=== PATIENT | female | born 1975 | race Caucasian/White ===

== ENCOUNTER 2016-03-19 18:04 | Emergency (ER) | payer OTHER ==
[~2016-03-19] VITALS: Ht 149.9 cm; Wt 67.5 kg
[2016-03-19 18:18] VITALS: Ht 149.9 cm; Wt 67.5 kg
[2016-03-19] MEDS ORDERED: ALBU8.5H3 INH (18:51)
[2016-03-19] MEDS ORDERED: GUAI473L22 PO (18:51)
[2016-03-19] MEDS ORDERED: PSEU120T11 PO (18:51)
--- NOTE | 2016-03-19 18:57 | ERD ---
ER Documentation Chief Complaint Date/Time DATE: 03/19/16 TIME: 18:54 Chief Complaint Cough X 1 week and difficulty breathing x 2 days, sats 96%. HPI 40-year-old female presents to emergency department for complaint of cough for 1 week, on and off wheezing, runny nose nasal congestion. Patient has been having cough for one week, has been having shortness of breath and some wheezing episode for the last 2 days. Patient having dry cough, does not cough up any phlegm or blood. Patient does not have any fever or chills. Patient does not have any sick contacts. Patient does not have any chest or palpitations. Patient took promethazine with only mild relief. Patient denies any sick contacts. ROS All systems reviewed and are negative except as per history of present illness. Medications Home Meds Active Scripts Pseudoephedrine Hcl (Sudafe 12-Hour) 120 Mg Tablet.er, 120 MG PO BID Y for CONGESTION, #14 TAB.SA Prov:WEI CANAS NP 03/19/16 Albuterol Sulfate* (Proair HFA*) 8.5 Gm Hfa.aer.ad, 2 PUFF INH Q4H Y for WHEEZING AND SOB, #1 INHALER Prov:WEI CANAS NP 03/19/16 Guaifenesin-Codeine Phosphate* (Guaifenesin* AC Cough Syrup) 473 Ml Liquid, 10 ML PO Q4H Y for COUGH, #120 ML Prov:WEI CANAS EXTERMINATOR 03/19/16 Allergies Allergies: Coded Allergies: loratadine (Verified Allergy, Mild, 05/04/15) PMhx/Soc History of Surgery: Yes (CSX, L SCALP MASS RESECTION) Anesthesia Reaction: No Hx Neurological Disorder: No Hx Respiratory Disorders: No Hx Cardiac Disorders: No Hx Psychiatric Problems: No Hx Miscellaneous Medical Probl: No Hx Alcohol Use: No Hx Substance Use: No Hx Tobacco Use: No FmHx Family History: No coronary disease, No diabetes, No other Physical Exam Vitals Vital Signs Date Time Temp Pulse Resp B/P Pulse Ox O2 Delivery O2 Flow Rate FiO2 03/19/16 18:18 98.3 87 18 135/78 96 Physical Exam GENERAL: The patient is well developed and appropriate for usual state of health, in no apparent distress. HEENT: Atraumatic. Ears: Normal tympanic membrane, no erythema or bulging. No ear canal swelling. No ear discharge. Nose: Erythematous nasal turbinates with clear nasal discharge. Throat: oropharynx erythematous with postnasal drip. No tonsillar swelling or tonsillar exudates. No lymphadenopathy. CHEST: Clear to auscultation bilaterally. There are no rales, wheezes or rhonchi. HEART: Regular rate and rhythm. No murmurs, clicks, rubs or gallops. No S3 or S4. ABDOMEN: Soft, nontender and nondistended. Good bowel sounds. No rebound or guarding. No gross peritonitis. No gross organomegaly or masses. No Atkinson sign or McBurney point tenderness. BACK: No midline or flank tenderness. EXTREMITIES: Equal pulses bilaterally. There is no peripheral clubbing, cyanosis or edema. No focal swelling or erythema. Full range of motion. Grossly neurovascularly intact. NEURO: Alert and oriented. Cranial nerves 2-12 intact. Motor strength in all 4 extremities with 5/5 strength. Sensation grossly intact. Normal speech and gait. SKIN: There is no apparent rash or petechia. The skin is warm and dry. HEMATOLOGIC AND LYMPHATIC: There is no evidence of excessive bruising or lymphedema. No gross cervical, axillary, or inguinal lymphadenopathy. Procedures/MDM Medical Decision Making: Patient symptoms are most likely consistent with acute bronchitis, which viral in origin. There is low suspicion for Pneumonia at this time since patients lungs sounds are clear, patient O2 saturation is normal and patient doesnt show any respiratory distress. Patients chest xray doesnt show infiltrates or any other cardiopulmonary emergencies at this time. There is low suspicion for other cardiopulmonary emergencies at this time such as CHF, Pulmonary Embolism, Pneumothorax, or any other cardiopulmonary emergencies at this time. There is low suspicion for sepsis. Patient appears well and is hemodynamically stable. Patient does not have any fever. Disposition: Home. Condition: Stable Prescriptions: Sudafed, albuterol, guaifenesin with codeine Instructions: Patient is advised to take medications as prescribed. Patient is advised to rest. Patient advised to increase fluid intake, do humidifier at home and if possible, do salt water gargles. Patient is advised that if symptoms are worse, shortness of breath, uncontrolled fever, stridor, vomiting, worst signs and symptoms to return to emergency department immediately. Otherwise, patient is advised to follow up with primary doctor in 5-7 days. Departure Diagnosis: Primary Impression: Acute bronchitis Bronchitis organism: unspecified organism Qualified Code: J20.9 - Acute bronchitis, unspecified organism Condition: Stable Patient Instructions: Bronchitis With Wheezing (Adult) WEI CANAS NP Mar 19, 2016 18:57
== END 2016-03-19 18:54 | disposition home or self-care (01) ==
LOC: FTE 18:04 → E/R 18:54
DX: J20.9 Acute bronchitis, unspecified (principal)
CPT/HCPCS: 99283